=== PATIENT | female | born 1970 | race Two or more races ===

== ENCOUNTER → 2024-07-26 | Outpatient (CLI) | payer MEDICAID, SELFPAY ==
--- NOTE | 2024-07-26 08:00 | XR_ITS ---
Examination: Diagnostic digital mammography, unilateral, left Computer aided detection 3-D breast Tomosynthesis, unilateral Date and time of exam: July 26, 2024 0758 hours INDICATIONS: 5 mm circumscribed nodule upper outer left breast spot compression CC view mammogram October 25, 2023 Technique: Nonmagnified MLO, CC views of the left breast have been obtained, reconstructed from 3-D Tomosynthesis images. R2 computer aided detection program utilized for evaluation of suspicious masses and/or abnormal calcifications. 3-D Tomosynthesis images obtained. Findings: Scattered areas of fibroglandular density No definite suspicious masses Impression: BI-RADS category 2: Benign findings Recommend yearly follow-up mammography Recommend repeat left breast sonography at this time to compare with October 25, 2023 exam
== END | disposition home or self-care (01) ==
LOC: CDIM 07:45
PROVIDERS: PCP Physician Assistant; Referring Provider Physician Assistant; Visit Provider Physician Assistant
DX: R92.323 Mammographic fibroglandular density, bilateral breasts (principal); R92.322 Mammographic fibroglandular density, left breast
CPT/HCPCS: 77061; 77065; G0279